=== PATIENT | female | born 1930 | race Hispanic/Latino ===

== ENCOUNTER 2017-11-27 22:36 | Inpatient (IN) | payer MEDICARE ==
[2017-11-27] MEDS ORDERED: Ondansetron HCl/PF 4 MG/2 ML Vial ONE (23:25)
--- NOTE | 2017-11-27 23:33 | CT ---
CT OF THE BRAIN WITHOUT CONTRAST 11/27/17 INDICATION: Fall hitting her face on a sink. Patient has had episodes of nausea and vomiting since being at home. COMPARISON: CTA of the head dated 02/19/12. FINDINGS: Stable postsurgical change of a right sided craniotomy. Vascular coils seen within the central aspect of the middle cranial fossa is similar. No acute infarct, hemorrhage or hydrocephalus is present. Th e skull is intact. The visualized paranasal sinuses appear clear. Mastoid air cells are clear. IMPRESSION: No acute intracranial abnormality. POS: THERESA
[2017-11-27 23:55] LABS: #Lymphocytes 1.6 thou/uL (1.20-3.40); #Monocytes 0.9 thou/uL (0.11-0.59); #Neutrophils 8.8 thou/uL (1.40-6.50); %Basophils 0.1 % (0.0-1.0); %Eosinophils 0.2 % (0.0-10.0); %Lymphocytes 13.7 % (21.0-51.0); Hemoglobin 16.9 g/dL (12.0-16.0); Mean Corpuscular HGB CONC 32.4 g/dL (32.0-36.0); Mean Corpuscular Hemoglobin 31.1 pg (27.0-31.0); Mean Corpuscular Volume 96.1 fl (81.0-99.0); Mean Platelet Volume 7.7 fL (7.4-10.4); Platelet Count 236 thou/uL (130-400); RBC Distribution Width 12.7 % (11.5-14.5); Red Blood Cell (RBC) Count 5.43 mill/uL (4.20-5.40); White Blood Cell (WBC) Count 11.3 thou/uL (4.8-10.8)
[2017-11-28 00:06] LABS: ALT (SGPT) 90 U/L (8-55); AST (SGOT) 236 U/L (5-34); Albumin 3.5 g/dL (3.4-4.8); Alkaline Phosphatase 127 U/L (40-150); Anion Gap 25 mmol/L (10-20); BUN (Urea Nitrogen) 50 mg/dL (9.8-20.1); Bilirubin, Total 0.5 mg/dL (0.2-1.2); Calc. Creatinine Clearance 0 mL/min (70-130); Calcium 8.7 mg/dL (7.8-10.44); Carbon Dioxide 15 mmol/L (23-31); Chloride 102 mmol/L (98-107); Estimated GFR-MDRD 14; Globulin 3.7 g/dL (2.4-3.5); Glucose 127 mg/dL (83-110); Potassium 4.3 mmol/L (3.5-5.1); Protein, Total 7.2 g/dL (6.0-8.3); Sodium 138 mmol/L (136-145)
[2017-11-28 00:10] LABS: Troponin I 0.218 ng/mL (< 0.028)
[2017-11-28 00:15] LABS: CKMB 48.8 ng/mL (0-6.6)
[2017-11-28] MEDS ORDERED: Oseltamivir 75 MG CAP PO SCH (00:30)
[2017-11-28 00:35] LABS: CK (CPK) 11017 U/L (29-168)
[2017-11-28 00:49] LABS: Bilirubin Moderate (Negative); Blood, Urine Large (Negative); Clarity TURBID (Clear); Glucose, Urine (Dipstick) 100 mg/dL (Negative); Leukocyte Small (Negative); Nitrite Negative (Negative); Protein, Urine (Dipstick) 100 mg/dL (Neg-Trace); Specific Gravity, Urine 1.026 (1.002-1.036); Urobilinogen 0.2 mg/dL (0.2-1.0)
[2017-11-28 00:51] LABS: Bacteria/HPF None Seen HPF (None Seen); Pathc Cast-AUWi Flag 4.87 (0-2.49); Yeast-AUWi Flag 263.7 (0-25.0)
[2017-11-28 00:55] LABS: Crystals/HPF 2+ AMORPH URATES HPF (Negative); Renal Epithelial None Seen HPF (0-3); Transitional Epithelial NONE SEEN HPF (0-3); Trichomonas/HPF None Seen HPF (None Seen); Yeast-All Forms None Seen HPF (None Seen)
[2017-11-28] MEDS ORDERED: Sodium Bicarbonate 150 MEQ in Sterile Water Injection 1,000 ML IV SCH (01:30)
[2017-11-28 06:11] LABS: Troponin I 0.129 ng/mL (< 0.028)
[2017-11-28 06:13] LABS: #Lymphocytes 2.3 thou/uL (1.20-3.40); #Monocytes 0.9 thou/uL (0.11-0.59); #Neutrophils 9.1 thou/uL (1.40-6.50); %Basophils 0.1 % (0.0-1.0); %Eosinophils 0.2 % (0.0-10.0); %Lymphocytes 18.6 % (21.0-51.0); %Monocytes 7.5 % (0.0-10.0); %Neutrophils 73.6 % (42.0-75.0); Hemoglobin 14.5 g/dL (12.0-16.0); Mean Corpuscular HGB CONC 33.4 g/dL (32.0-36.0); Mean Corpuscular Hemoglobin 32.1 pg (27.0-31.0); Mean Platelet Volume 7.4 fL (7.4-10.4); Platelet Count 224 thou/uL (130-400); RBC Distribution Width 12.4 % (11.5-14.5); Red Blood Cell (RBC) Count 4.51 mill/uL (4.20-5.40); White Blood Cell (WBC) Count 12.4 thou/uL (4.8-10.8)
[2017-11-28 06:28] LABS: ALT (SGPT) 85 U/L (8-55); AST (SGOT) 209 U/L (5-34); Albumin 3.1 g/dL (3.4-4.8); Alkaline Phosphatase 100 U/L (40-150); Anion Gap 20 mmol/L (10-20); BUN (Urea Nitrogen) 56 mg/dL (9.8-20.1); Bilirubin, Total 0.4 mg/dL (0.2-1.2); Calc. Creatinine Clearance 0 mL/min (70-130); Calcium 7.9 mg/dL (7.8-10.44); Carbon Dioxide 20 mmol/L (23-31); Chloride 104 mmol/L (98-107); Estimated GFR-MDRD 14; Glucose 98 mg/dL (83-110); Potassium 4.1 mmol/L (3.5-5.1); Protein, Total 6.1 g/dL (6.0-8.3); Sodium 140 mmol/L (136-145)
[2017-11-28 06:31] LABS: Troponin I 0.135 ng/mL (< 0.028)
[2017-11-28 06:35] LABS: Critical Call CKMBM RESULT DECREASING
[2017-11-28 06:40] LABS: CK (CPK) 7824 U/L (29-168)
[2017-11-28] MEDS ORDERED: traMADol HCl 50 MG TAB ONE (09:04)
[2017-11-28] MEDS ORDERED: Pepto Bismol Chew TAB PO PRN (12:34)
[2017-11-28] MEDS ORDERED: Ondansetron ODT 4 MG TAB PO PRN (12:34)
[2017-11-28] MEDS ORDERED: ALPRAZolam 0.25 MG TAB PO PRN (13:55)
--- NOTE | 2017-11-28 14:32 | HP ---
DATE OF SERVICE: 11/28/2017 CHIEF COMPLAINT: Weakness. HISTORY OF PRESENT ILLNESS: This is an 87-year-old elderly white female living with her with no known past medical history except for high blood pressures. Today, the patient was noted to have worsening weakness and cough associated with severe headache. The patient also had a syncopal episo de early this morning and her has advised the patient to go to the ER. The patient called EM S and the patient was brought to the ER and she is noted to have markedly elevated CPK levels. Initi ally it was suggested the patient could have had rhabdomyolysis. The patient had thorough evaluation and had enzymes were checked which was positive. The patient was seen in the ER, she was complainin g of severe diarrhea for the past 2-3 days, associated with nausea and vomiting and body aches. She does mention that she was exposed to her , who was also sick for the past few days and assumin g that he also had influenza. The patient had a recent hospitalization for gallbladder removal was i a different hospital and was started on oral antibiotics at that time. She denies having any chest pain at this time. She denies having any abdominal pain. Denies having any blood in the stool. No black stool. PAST MEDICAL HISTORY: Hypertension. PAST SURGICAL HISTORY: Gallbladder removal. SOCIAL HISTORY: The patient is not known smoker. No history of alcohol. No history of illicit drug use. The patient lives with her . FAMILY HISTORY: No significant family history of coronary artery disease. REVIEW OF SYSTEMS: All 12 systems are reviewed with the patient thoroughly. The following complete review of systems was negative, unless otherwise mentioned in the HPI or below: CONSTITUTIONAL: Weight loss or gain, sense of well-being, ability to conduct usual activities, exerc ise tolerance. SKIN/BREAST: Rash, itching, changes in hair growth or loss, nail changes, breast lumps, tenderness, swelling, nipple discharge. EYES: Vision, double vision, tearing, blind spots, pain. ENT/MOUTH: Headaches (location, time of onset, duration, precipitating factors), vertigo, lightheadedness, injury. Vision, double vision, tearing, blind spots, pain, nose b leeding, colds, obstruction, discharge, dental difficulties, gingival bleeding, dentures, neck stiffn ess, pain, tenderness, masses in thyroid or other areas CARDIOVASCULAR: Precordial pain, substernal distress, palpitations, syncope, dyspnea on exertion, or thopnea, nocturnal paroxysmal dyspnea, edema, cyanosis, hypertension, heart murmurs, varicosities, ph lebitis, claudication. RESPIRATORY: Pain, shortness of breath, wheezing, stridor, cough, hemoptysis, fever or night sweats GASTROINTESTINAL: Poor appetite, dysphagia, indigestion, abdominal pain, heartburn, eructation, naus ea, vomiting, hematemesis, jaundice, constipation, or diarrhea, abnormal stools (tomi-colored, tarry, bloody, greasy, foul smelling), flatulence, hemorrhoids, recent changes in bowel habits. GENITOURINARY: Urgency, frequency, dysuria, nocturia, hematuria, polyuria, oliguria, unusual (or teresa nge in) color of urine, stones, hesitancy, change in size of stream, dribbling, acute retention or in continence, libido, potency. MUSCULOSKELETAL: Pain, swelling, redness or heat of muscles or joints, limitation, of motion, muscular weakness, atrophy, cramps. NEUROLOGIC/PSYCHIATRIC: Convulsions, paralyses, tremor, incoordination, parasthesias, difficulties w ith memory of speech, sensory or motor disturbances, or muscular coordination (ataxia, tremor), emoti onal problems, anxiety, depression, previous psychiatric care, unusual perceptions, hallucinations. ALLERGY/IMMUNOLOGIC: Skin rash, anemia, bleeding tendency, polydipsia, polyuria, intolerance to heat or cold. HOME MEDICATIONS: 1. Lisinopril 20 mg p.o. daily. 2. Nebivolol 10 mg p.o. daily. 3. Pantoprazole 40 mg p.o. daily. 4. Tramadol 50 mg daily. 5. Levofloxacin 500 mg daily. 6. Clonidine 0.5 mg p.o. q.4 hours. 7. Citalopram 20 mg p.o. daily. 8. Azithromycin 500 mg p.o. daily. 9. Aspirin 325 mg p.o. daily. 10. Amlodipine 5 mg p.o. b.i.d. 11. Alprazolam 0.25 mg q.4 hours. ALLERGIES: No known drug allergies. PHYSICAL EXAMINATION: VITAL SIGNS: Blood pressures are 110/80, respiratory rate is 18, saturation is 98% on 3 liters. HEENT: Atraumatic, normocephalic, PERRLA. Extraocular movements are intact. Oral mucosa is pink an d moist. CARDIOVASCULAR: S1, S2 normal. No murmurs, no rubs, no gallops. LUNGS: Bilateral air entry was equal. No wheezing, no crackles. ABDOMEN: Soft and nontender. No guarding. No rebound tenderness. Bowel sounds normal. MUSCULOSKELETAL: The patient has severe tenderness at the upper and lower extremities, but no calf t enderness. No joint tenderness. No joint swelling. SKIN: No cyanosis, no erythema, no rash, no pallor. NEUROLOGIC: Cranial nerve examination II-XII intact. No focal deficits were noted. LYMPH: Lymphadenopathy, no signs of any axillary or inguinal lymph nodes were noted. PSYCHIATRIC: No signs of suicidal ideation. No signs of tre. No signs of agitation. LABORATORY DATA: WBC is 12.4, hemoglobin is 14.5, hematocrit is 43.2, and platelets are 224. Sodium 140, potassium 4.1, chloride 104, bicarbonate is 20, BUN 56, creatinine 3.19. CK is 7824. Troponin 0.135. ASSESSMENT AND PLAN: 1. Acute rhabdomyolysis. 2. Acute influenza A infection. 3. Intractable nausea and vomiting. 4. Intractable diarrhea. 5. Non-ST elevation myocardial infarction. 6. Acute kidney injury on chronic kidney disease, stage 4. PLAN: 1. The plan is to start the patient on IV fluids at this time 100 mL an hour. The patient has stage 4 renal disease, but this is based on estimated GFR. No evidence of previous history of worsening r enal failure. The patient has a good urine output according to her, so we will continue with aggress james IV hydration because of the severe rhabdomyolysis. 2. The patient has severe diarrhea and she is on oral antibiotics from her recent surgery, so at thi s time we will check for C. diff infection. Accordingly, I will start the patient on antibiotics bas ed on assay results. 3. The patient has worsening renal functions with a creatinine of 3.19. We will avoid any nephrotox ic medications. We will consult Nephrology moving forward if the renal functions do not improve with IV fluids. 4. The patient has elevated troponin levels, most likely this could be from demand ischemia and ishan re dehydration. She denies having any chest pain. We will continue the patient on aspirin and she i s also on statin. We will closely monitor. We will get a 2D echo to look for any evidence of wall m otion abnormality. We will consult Cardiology if needed if the troponin continues to trend. 5. History of hypertension, well controlled. We will hold off on the blood pressure medications. T he patient is on lisinopril. I spent 70 minutes with this patient.
[2017-11-28 15:28] VITALS: BMI 32.1
[2017-11-28] MEDS ORDERED: FLU VACC TS2017-18 (>65YR) 0.5 ML SYRINGE IM ONE (17:00)
[2017-11-28] MEDS: Sodium Chloride 0.9% 1,000 ML IV SCH (18:10)
[2017-11-28] MEDS: Carvedilol 3.125 MG TAB PO SCH (18:11)
--- NOTE | 2017-11-28 18:20 | CON ---
DATE OF CONSULTATION: 11/28/2017 CONSULTING PHYSICIAN: Jayesh Queen MD REASON FOR CONSULTATION: Acute kidney injury, rhabdomyolysis. REASON FOR ADMISSION: Weakness. HISTORY OF PRESENT ILLNESS: An 87-year-old female with history of hypertension who came to the hospital with weakness and was found to have acute kidney injury. The patient was very weak and was having cough and headache with syncopal episode and was brought to the hospital. On arrival, she was found to have a creatinine of 3.1 from her baseline of 0.7 with a CK level of 11,000 and Nephrol ogfrancis is consulted for further evaluation. The patient is feeling slightly better. She was also havin g nausea, vomiting, and body aches. No diarrhea reported. No skin rashes. No sick contacts at home . PAST MEDICAL HISTORY: Possible hypertension. PAST SURGICAL HISTORY: Cholecystectomy. HOME MEDICATIONS: Include Tramadol and lisinopril. ALLERGIES: To GOAT CHEESE. SOCIAL HISTORY: She is not a smoker. No alcohol or illicit drug abuse. FAMILY HISTORY: No history of any kidney disease. REVIEW OF SYSTEMS: The following complete review of systems was negative, unless otherwise mentioned in the HPI or below: Constitutional: Weight loss or gain, ability to conduct usual activities. Skin: Rash, itching. Ey es: Double vision, pain. ENT/Mouth: Nose bleeding, neck stiffness, pain, tenderness. Cardiovascul ar: Palpitations, dyspnea on exertion, orthopnea. Respiratory: Shortness of breath, wheezing, coug h, hemoptysis, fever or night sweats. Gastrointestinal: Poor appetite, abdominal pain, heartburn, n ausea, vomiting, constipation, or diarrhea. Genitourinary: Urgency, frequency, dysuria, nocturia. Musculoskeletal: Pain, swelling. Neurologic/Psychiatric: Anxiety, depression. Allergy/Immunologic : Skin rash, bleeding tendency. PHYSICAL EXAMINATION: GENERAL: This is an obese female in no apparent distress. VITAL SIGNS: Temperature 98.3, pulse 81, respiratory 16, blood pressure 125/76. HEENT: Atraumatic, normocephalic. Oral mucosa is moist. NECK: Supple, no masses. HEART: S1, S2 heard. Rate and rhythm regular. RESPIRATORY: Clear. GASTROINTESTINAL: Abdomen is soft. MUSCULOSKELETAL: No tenderness, no edema. DERMATOLOGIC: No skin rash. NEUROLOGIC: Alert, awake. PSYCHIATRIC: Normal. LABORATORY: Potassium is 4.1, BUN is 56, creatinine is 3.1. CK level was 11,017. ASSESSMENT AND PLAN: 1. Acute kidney injury most likely from rhabdomyolysis and volume depletion. Agree with hydration a nd check renal ultrasound. 2. Rhabdomyolysis. Continue on intravenous fluids and monitor. CK level is already better with hyd ration. 3. Elevated liver enzymes, most likely from volume depletion. 4. Hemoconcentration seems to be better with repeat labs. 5. Hypoalbuminemia. 6. Obesity. 7. Hypertension, stable. Most likely acute kidney injury from volume depletion and medications. Agree with holding lisinopril and hydration, monitor CK level and monitor urine output. We will follow. Thank you for the consultation. Avoid nephrotoxins.
[2017-11-28] MEDS: Famotidine/PF 20 mg/2ml Vial SLOW IVP SCH (20:54)
[2017-11-28] MEDS: Atorvastatin Calcium 10 MG TAB PO SCH (20:54)
[2017-11-28] MEDS: Amlodipine 5 MG TAB PO SCH (20:54)
[2017-11-28] MEDS: Oseltamivir 75 MG CAP PO SCH (20:54)
[2017-11-28] MEDS: HYDROcodone/Acetaminophen 5/325 mg Tablet PO PRN (20:55)
[2017-11-28] MEDS: Ondansetron HCl/PF 4 MG/2 ML Vial IVP PRN (23:31)
[2017-11-28 23:35] LABS: Bilirubin Negative (Negative); Blood, Urine Large (Negative); Clarity CLOUDY (Clear); Glucose, Urine (Dipstick) Negative (Negative); Leukocyte Negative (Negative); Nitrite Negative (Negative); Protein, Urine (Dipstick) 30 mg/dL (Neg-Trace); Specific Gravity, Urine 1.015 (1.002-1.036); Urobilinogen 0.2 mg/dL (0.2-1.0); pH, Urine 5.5 (5.0-9.0)
[2017-11-28 23:38] LABS: Bacteria/HPF None Seen HPF (None Seen); Yeast-AUWi Flag 179.1 (0-25.0)
[2017-11-28 23:39] LABS: Pathc Cast-AUWi Flag 7.18 (0-2.49)
[2017-11-28 23:53] LABS: Hyaline Casts/LPF 0-3 HYALINE CAST LPF (0-3 Hyaline); Other Casts/LPF None Seen LPF (0-3 Hyaline); RBC/HPF 0-3 HPF (0-3); Yeast-All Forms None Seen HPF (None Seen)
[2017-11-29] MEDS: Sodium Chloride 0.9% 1,000 ML IV SCH ×3 (00:31→15:56)
[2017-11-29 05:16] LABS: #Lymphocytes 1.9 thou/uL (1.20-3.40); #Monocytes 0.8 thou/uL (0.11-0.59); #Neutrophils 6.9 thou/uL (1.40-6.50); %Basophils 0.1 % (0.0-1.0); %Eosinophils 0.3 % (0.0-10.0); %Lymphocytes 19.6 % (21.0-51.0); %Monocytes 7.9 % (0.0-10.0); %Neutrophils 72.1 % (42.0-75.0); Hemoglobin 12.7 g/dL (12.0-16.0); Mean Corpuscular HGB CONC 33.2 g/dL (32.0-36.0); Mean Corpuscular Hemoglobin 31.9 pg (27.0-31.0); Mean Platelet Volume 7.8 fL (7.4-10.4); Platelet Count 212 thou/uL (130-400); RBC Distribution Width 12.4 % (11.5-14.5); White Blood Cell (WBC) Count 9.6 thou/uL (4.8-10.8)
[2017-11-29 05:51] LABS: Anion Gap 15 mmol/L (10-20); BUN (Urea Nitrogen) 60 mg/dL (9.8-20.1); Calc. Creatinine Clearance 25 mL/min (70-130); Calcium 7.5 mg/dL (7.8-10.44); Carbon Dioxide 22 mmol/L (23-31); Chloride 105 mmol/L (98-107); Estimated GFR-MDRD 19; Glucose 96 mg/dL (83-110); Potassium 4.3 mmol/L (3.5-5.1); Sodium 138 mmol/L (136-145)
--- NOTE | 2017-11-29 08:05 | PDOC.PN ---
- Subjective Encounter Start Date: 11/29/17 Encounter Start Time: 11:20 Patient is seen today, she is c/o worsening weakness and Constippation. persistant nausea. - Objective Resuscitation Status: Resuscitation Status FULL:Full Resuscitation MAR Reviewed: Yes Vital Signs & Weight: Vital Signs (12 hours) Temp Pulse Resp BP BP Pulse Ox 11/29/17 03:45 97.3 F L 68 20 114/67 94 L 11/28/17 23:33 98.0 F 83 20 97/61 92 L 11/28/17 20:54 68 132/71 I&O: 11/28/17 11/29/17 11/30/17 06:59 06:59 06:59 Intake Total 1899 Output Total 1 Balance 1898 Result Diagrams: 11/29/17 03:27 11/29/17 03:27 Radiology Reviewed by me: Yes Phys Exam - Physical Examination HEENT: PERRLA, moist MMs Neck: no nodes, no JVD Respiratory: no wheezing, no rales, no rhonchi Cardiovascular: RRR, no significant murmur, no rub Gastrointestinal: soft, non-tender, no distention Musculoskeletal: no edema, pulses present Neurological: non-focal, normal sensation Psychiatric: normal affect, A&O x 3 Skin: no rash, normal turgor Dx/Plan (1) Acute renal failure due to rhabdomyolysis Code(s): N17.9 - ACUTE KIDNEY FAILURE, UNSPECIFIED; D21.9 - BENIGN NEOPLASM OF CONNECTIVE AND OTHER SOFT TISSUE, UNSP Status: Acute (2) Influenza A Code(s): J10.1 - FLU DUE TO OTH IDENT INFLUENZA VIRUS W OTH RESP MANIFEST Status: Acute (3) Intractable nausea and vomiting Code(s): R11.2 - NAUSEA WITH VOMITING, UNSPECIFIED Status: Acute (4) NSTEMI (non-ST elevated myocardial infarction) Code(s): I21.4 - NON-ST ELEVATION (NSTEMI) MYOCARDIAL INFARCTION Status: Acute - Plan cont current plan of care, continue antibiotics, PT/OT, respiratory therapy, incentive spirometry, DVT proph w/lovenox * . Acute Influenza A Acute Rhabdomyolysis with Renal Failure NSTEMI Intractable nausea Generalized Weakness Plan: Discuased with nephrology, Advised pt for inpatient Rehab, pt is very weak and her Hydration is improving with IV fluids, Will repeat CPK and Troponin levels. Will continue to Avoid Nephrotoxic meds. Cotninue on Tamiflu for 5 days Continue on Prophylaxis IV antibiotics Renally dosed. Pt has Echo pending, Troponins trending down, No chest pain. pt is on Coreg, Statin, Aspirin. Pt would benefit from Rehab, she is very weak. DVT prophylaxis Lovenox 40mg Sc daily. - Discharge Day Encounter end time: 12:15 Review of Systems - Review of Systems Constitutional: weakness Eyes: negative: Pain, Vision Change, Conjunctivae Inflammation, Eyelid Inflammation, Redness, Other ENT: negative: Ear Pain, Ear Discharge, Nose Pain, Nose Discharge, Nose Congestion, Mouth Pain, Mouth Swelling, Throat Pain, Throat Swelling, Other Respiratory: negative: Cough, Dry, Shortness of Breath, Hemoptysis, SOB with Excertion, Pleuritic Pain, Sputum, Wheezing Cardiovascular: negative: chest pain, palpitations, orthopnea, paroxysmal nocturnal dyspnea, edema, light headedness, other Gastrointestinal: Nausea - Medications/Allergies Allergies/Adverse Reactions: Allergies Allergy/AdvReac Type Severity Reaction Status Date / Time Goat Cheese Allergy Intermediate Fever, rash Uncoded 11/28/17 15:28 Medications: Current Medications Hydrocodone Bitart/Acetaminophen ([place] 5/325) 1 tab PO Q4H PRN PRN Reason: Moderate Pain (4-6) Last Admin: 11/28/17 20:55 Dose: 1 tab Alprazolam (Xanax) 0.25 mg PO Q4H PRN PRN Reason: Anxiety Amlodipine Besylate (Norvasc) 5 mg PO BID [facility] Last Admin: 11/28/17 20:54 Dose: 5 mg Aspirin (Ecotrin) 325 mg PO DAILY [facility] Atorvastatin Calcium (Lipitor) 10 mg PO HS [facility] Last Admin: 11/28/17 20:54 Dose: 10 mg Bismuth Subsalicylate (Pepto Bismol) 2 tab PO Q1H PRN PRN Reason: Diarrhea/Loose Stools Carvedilol (Coreg) 3.125 mg PO BID[facility] Last Admin: 11/28/17 18:11 Dose: 3.125 mg Citalopram Hydrobromide (Celexa) 20 mg PO DAILY [facility] Enoxaparin Sodium (Lovenox) 40 mg SC 0900 [facility] Famotidine (Pepcid) 20 mg SLOW IVP Q12HR [facility] Last Admin: 11/28/17 20:54 Dose: 20 mg Sodium Chloride (Normal Saline 0.9%) 1,000 mls @ 100 mls/hr IV .Q10H [facility] Last Admin: 11/29/17 05:21 Dose: 1,000 mls Levofloxacin 500 mg/ Device 100 mls @ 100 mls/hr IVPB Q2D@1800 [facility] Last Admin: 11/28/17 18:09 Dose: 100 mls Ondansetron HCl (Zofran Odt) 4 mg PO Q6H PRN PRN Reason: Nausea/Vomiting Ondansetron HCl (Zofran) 4 mg IVP Q6H PRN PRN Reason: Nausea/Vomiting Last Admin: 11/28/17 23:31 Dose: 4 mg Oseltamivir Phosphate (Tamiflu) 75 mg PO BID [facility] Stop: 12/03/17 09:01 Last Admin: 11/28/17 20:54 Dose: 75 mg
[2017-11-29] MEDS: Enoxaparin Sodium 40 MG/0.4 ML SYRINGE SC SCH (08:41)
[2017-11-29] MEDS: Aspirin 325 mg Enteric Coated Tablet PO SCH (08:42)
[2017-11-29] MEDS: Carvedilol 3.125 MG TAB PO SCH ×2 (08:42→17:14)
[2017-11-29] MEDS: Citalopram 20 MG TAB PO SCH (08:42)
[2017-11-29] MEDS: Amlodipine 5 MG TAB PO SCH ×2 (08:42→20:42)
[2017-11-29] MEDS: Famotidine/PF 20 mg/2ml Vial SLOW IVP SCH ×2 (08:42→20:43)
[2017-11-29 08:51] LABS: Troponin I 0.045 ng/mL (< 0.028)
[2017-11-29] MEDS: Oseltamivir 75 MG CAP PO SCH ×2 (09:22→20:43)
[2017-11-29] MEDS: Ondansetron HCl/PF 4 MG/2 ML Vial IVP PRN (12:28)
--- NOTE | 2017-11-29 17:09 | PRG ---
DATE OF SERVICE: 11/29/2017 SUBJECTIVE: Patient was seen and examined at bedside and overnight events noted. Patient denies any shortness of breath or chest pain or palpitation. No history of nausea or vomiting or diarrhea or f ever or chills or cramps. OBJECTIVE: GENERAL: This is an obese female in no apparent distress. VITAL SIGNS: Temperature 97.9, pulse 70, respiratory rate 20, blood pressure 148/76. HEENT: Atraumatic, normocephalic. Oral mucosa is moist. NECK: Supple. CARDIOVASCULAR: S1, S2 heard. Rate and rhythm regular. RESPIRATORY: Clear to auscultation. GASTROINTESTINAL: Abdomen is soft. MUSCULOSKELETAL: No tenderness, no edema. DERMATOLOGIC: No skin rash. NEUROLOGIC: Alert and awake and oriented x3. No focal neurologic deficits. Moving all the extremit ies. PSYCHIATRIC: Mood and affect normal. LABORATORY DATA: Potassium is 4.3, BUN is 60 and creatinine is 2.4. ASSESSMENT AND PLAN: 1. Acute kidney injury on chronic kidney disease. Renal function is getting better. 2. Rhabdomyolysis. Continue IV fluids. 3. Elevated liver enzymes. 4. Hemoconcentration. 5. Hypoalbuminemia. 6. Obesity. 7. Hypertension. Continue hydration. Renal function is stable.
--- NOTE | 2017-11-29 20:15 | CON ---
DATE OF CONSULTATION: 11/29/2017 INDICATION FOR CONSULTATION: This is an 87-year-old female with abnormal cardiac enzymes. HISTORY OF PRESENT ILLNESS: This is a very unfortunate 87-year-old female who has had a recent episo de of what appears to be influenza with a recent cough and headaches. She also developed nausea, vom iting, and diarrhea. She has not been able to eat for the last several days. She had either a synco pe or near syncopal episode. She denies actual syncope and said that she actually fell over due to f atigue and weakness, but otherwise, has had no previous cardiac history that we are aware of. When s he presented to the hospital, she had significant elevations of the cardiac enzymes as well as a CK. The CK is out of proportion actually to what would be expected with myocardial infarction and most l ikely, this indicates rhabdomyolysis most likely some history of fever as well as nausea, vomiting, a nd diarrhea. Her CK has decreased to 11,000, down to 4367. Her cardiac enzymes actually are still i ndeterminate and this would most likely indicate no significant myocardial infarction. MB was 45, bu t given the severe elevation of CK, this is most likely just due to the abnormality associated with t he CK that is extremely elevated and does not indicate myocardial infarction. She denied any chest p ain and there is no indication on the EKG that she has had any myocardial infarction. At this time, she remains stable, but she still continues to have some nausea. She has had no vomiting today and s he also continues to have diarrhea. PAST MEDICAL HISTORY: Significant for hypertension, cholecystectomy, left femur fracture with repair in 2012, rheumatoid arthritis, anxiety. 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 She h as a history of diverticulitis. She has had colon cancer with a partial colectomy. She has had an a ppendectomy, total abdominal hysterectomy and bilateral salpingo-oophorectomy. SOCIAL HISTORY: She is . She has no alcohol or tobacco abuse. FAMILY HISTORY: Father had coronary artery disease and myocardial infarction in his 70s. ALLERGIES: She is allergic to GOAT CHEESE. REVIEW OF SYSTEMS: Unremarkable 12-point review of systems except that was noted in the history of p resent illness. HOME MEDICATIONS: Included lisinopril and tramadol. In the hospital, she has been on Norvasc, aspir in, Coreg, and Lovenox. PHYSICAL EXAMINATION: VITAL SIGNS: Reveals blood pressure of 140/76, heart rate 72 and regular, she is afebrile, respirato ry rate is 20. HEENT: Shows the head to be normocephalic and atraumatic. Carotid pulses are present. There are no bruits. CHEST: Clear. No rales, rhonchi, or wheezing. CARDIOVASCULAR: Reveals a regular rate and rhythm, normal S1, S2. There is no S3 or S4. There were no significant murmurs, heaves, thrills, bruits, or rubs. ABDOMEN: Soft and nontender. Positive bowel sounds are present. EXTREMITIES: Showed no clubbing, cyanosis, edema. Pedal pulses are present. NEUROLOGIC: The patient appears to be relatively intact. She is too weak to get out of the bed for further evaluation. SKIN: Warm and dry. EKG shows a normal sinus rhythm. IMPRESSION: 1. Elevated cardiac enzymes due to rhabdomyolysis. This does not indicate myocardial infarction. I n the future, she may need to undergo stress testing or echo and we will check her echocardiogram whi ch has already been ordered. We will continue to monitor the enzymes, but this appears to be already trending downwards and does not indicate myocardial infarction. 2. History of most likely influenza. 3. Rhabdomyolysis which is the cause of her acute renal insufficiency and also most likely indicate some degree of dehydration associated with the rhabdomyolysis. 4. Acute renal insufficiency associated most likely to be rhabdomyolysis and dehydration. 5. Possible syncope. The patient denies this but maybe possibly that she did have a syncopal episod e at home that was most likely associated with hypotension and dehydration. At this time, we would j ust continue to monitor the patient. I have reviewed her medication, I would agree with her present medications. At this time, there is no indication. We need to proceed with any acute cardiac evalua tion.
[2017-11-29] MEDS: Atorvastatin Calcium 10 MG TAB PO SCH (20:43)
[2017-11-30] MEDS: Sodium Chloride 0.9% 1,000 ML IV SCH ×2 (01:57→12:00)
[2017-11-30 05:01] LABS: #Lymphocytes 2.2 thou/uL (1.20-3.40); #Monocytes 0.6 thou/uL (0.11-0.59); #Neutrophils 3.9 thou/uL (1.40-6.50); %Eosinophils 0.3 % (0.0-10.0); %Lymphocytes 32.8 % (21.0-51.0); %Monocytes 8.7 % (0.0-10.0); %Neutrophils 58.1 % (42.0-75.0); Hemoglobin 12.6 g/dL (12.0-16.0); Mean Corpuscular HGB CONC 32.9 g/dL (32.0-36.0); Mean Corpuscular Hemoglobin 31.8 pg (27.0-31.0); Mean Corpuscular Volume 96.5 fl (81.0-99.0); Mean Platelet Volume 7.6 fL (7.4-10.4); Platelet Count 204 thou/uL (130-400); RBC Distribution Width 12.2 % (11.5-14.5); Red Blood Cell (RBC) Count 3.97 mill/uL (4.20-5.40); White Blood Cell (WBC) Count 6.8 thou/uL (4.8-10.8)
[2017-11-30 05:16] LABS: Anion Gap 11 mmol/L (10-20); BUN (Urea Nitrogen) 41 mg/dL (9.8-20.1); Calc. Creatinine Clearance 50 mL/min (70-130); Calcium 7.7 mg/dL (7.8-10.44); Carbon Dioxide 23 mmol/L (23-31); Chloride 112 mmol/L (98-107); Estimated GFR-MDRD 43; Glucose 89 mg/dL (83-110); Potassium 3.7 mmol/L (3.5-5.1); Sodium 142 mmol/L (136-145)
[2017-11-30] MEDS: Amlodipine 5 MG TAB PO SCH ×2 (08:22→20:24)
[2017-11-30] MEDS: Enoxaparin Sodium 40 MG/0.4 ML SYRINGE SC SCH (08:23)
[2017-11-30] MEDS: Aspirin 325 mg Enteric Coated Tablet PO SCH (08:23)
[2017-11-30] MEDS: Carvedilol 3.125 MG TAB PO SCH ×2 (08:23→18:11)
[2017-11-30] MEDS: Citalopram 20 MG TAB PO SCH (08:23)
[2017-11-30] MEDS: Oseltamivir 75 MG CAP PO SCH ×2 (08:23→20:25)
[2017-11-30] MEDS: Famotidine/PF 20 mg/2ml Vial SLOW IVP SCH ×2 (08:23→20:26)
[2017-11-30] MEDS: Ondansetron HCl/PF 4 MG/2 ML Vial IVP PRN (12:00)
--- NOTE | 2017-11-30 14:30 | PDOC.PN ---
- Subjective Encounter Start Date: 11/30/17 Encounter Start Time: 11:15 Milton is seen today, alert and oriented, She remains very nauseaos and vomiting. No abdominal pain, had good BM. No body pains today. - Objective Resuscitation Status: Resuscitation Status FULL:Full Resuscitation MAR Reviewed: Yes Vital Signs & Weight: Vital Signs (12 hours) Temp Pulse Resp BP BP BP Pulse Ox 11/30/17 13:00 98.2 F 73 18 165/73 H 94 L 11/30/17 08:22 63 172/67 H 11/30/17 08:00 97.3 F L 63 20 170/67 H 99 11/30/17 04:00 98.2 F 63 20 156/65 H 93 L I&O: 11/29/17 11/30/17 12/01/17 06:59 06:59 06:59 Intake Total 1899 1446 Output Total 1 1 Balance 1898 1445 Result Diagrams: 11/30/17 03:51 11/30/17 03:51 Radiology Reviewed by me: Yes Phys Exam - Physical Examination HEENT: PERRLA, moist MMs Neck: no nodes, no JVD Respiratory: no wheezing, no rales Cardiovascular: RRR, no significant murmur Gastrointestinal: soft, non-tender Musculoskeletal: no edema, pulses present Neurological: non-focal, normal sensation Psychiatric: normal affect, A&O x 3 Skin: no rash, normal turgor Dx/Plan (1) Acute renal failure due to rhabdomyolysis Code(s): N17.9 - ACUTE KIDNEY FAILURE, UNSPECIFIED; D21.9 - BENIGN NEOPLASM OF CONNECTIVE AND OTHER SOFT TISSUE, UNSP Status: Acute (2) Influenza A Code(s): J10.1 - FLU DUE TO OTH IDENT INFLUENZA VIRUS W OTH RESP MANIFEST Status: Acute (3) Intractable nausea and vomiting Code(s): R11.2 - NAUSEA WITH VOMITING, UNSPECIFIED Status: Acute (4) NSTEMI (non-ST elevated myocardial infarction) Code(s): I21.4 - NON-ST ELEVATION (NSTEMI) MYOCARDIAL INFARCTION Status: Acute - Plan cont current plan of care, continue antibiotics, PT/OT, incentive spirometry, DVT proph w/lovenox * . Plan: pt is very weak and her Hydration is improving with IV fluids, will reduce fluids to 75ml/hr, repeat CPK is trending down and Troponin levels normal. Will continue to Avoid Nephrotoxic meds. Cotninue on Tamiflu for 5 days Continue on Prophylaxis IV antibiotics Renally dosed. Pt has Echo pending, Troponins trending down, No chest pain. pt is on Coreg , Statin, Aspirin. Cardiology Ok with plan. Pt would benefit from Rehab, she is very weak. DVT prophylaxis Lovenox 40mg Sc daily. - Discharge Day Encounter end time: 11:45 Review of Systems - Review of Systems Constitutional: weakness, malaise Eyes: negative: Pain, Vision Change, Conjunctivae Inflammation, Eyelid Inflammation, Redness, Other ENT: negative: Ear Pain, Ear Discharge, Nose Pain, Nose Discharge, Nose Congestion, Mouth Pain, Mouth Swelling, Throat Pain, Throat Swelling, Other Respiratory: negative: Cough, Dry, Shortness of Breath, Hemoptysis, SOB with Excertion, Pleuritic Pain, Sputum, Wheezing Cardiovascular: negative: chest pain, palpitations, orthopnea, paroxysmal nocturnal dyspnea, edema, light headedness, other Gastrointestinal: Nausea, Vomiting. negative: Abdominal Pain, Diarrhea, Constipation, Melena, Hematochezia, Other Genitourinary: negative: Dysuria, Frequency, Incontinence, Hematuria, Retention , Other Musculoskeletal: negative: Neck Pain, Shoulder Pain, Arm Pain, Back Pain, Hand Pain, Leg Pain, Foot Pain, Other Skin: negative: Rash, Lesions, Naveen, Bruising, Other Neurological: Weakness - Medications/Allergies Allergies/Adverse Reactions: Allergies Allergy/AdvReac Type Severity Reaction Status Date / Time Goat Cheese Allergy Intermediate Fever, rash Uncoded 11/28/17 15:28 Medications: Current Medications Hydrocodone Bitart/Acetaminophen ([place] 5/325) 1 tab PO Q4H PRN PRN Reason: Moderate Pain (4-6) Last Admin: 11/28/17 20:55 Dose: 1 tab Alprazolam (Xanax) 0.25 mg PO Q4H PRN PRN Reason: Anxiety Last Admin: 11/29/17 20:42 Dose: 0.25 mg Amlodipine Besylate (Norvasc) 5 mg PO BID [facility] Last Admin: 11/30/17 08:22 Dose: 5 mg Aspirin (Ecotrin) 325 mg PO DAILY [facility] Last Admin: 11/30/17 08:23 Dose: 325 mg Atorvastatin Calcium (Lipitor) 10 mg PO HS [facility] Last Admin: 11/29/17 20:43 Dose: 10 mg Bismuth Subsalicylate (Pepto Bismol) 2 tab PO Q1H PRN PRN Reason: Diarrhea/Loose Stools Carvedilol (Coreg) 3.125 mg PO BID-[facility] Last Admin: 11/30/17 08:23 Dose: 3.125 mg Citalopram Hydrobromide (Celexa) 20 mg PO DAILY [facility] Last Admin: 11/30/17 08:23 Dose: 20 mg Enoxaparin Sodium (Lovenox) 40 mg SC 0900 [facility] Last Admin: 11/30/17 08:23 Dose: 40 mg Famotidine (Pepcid) 20 mg SLOW IVP Q12HR [facility] Last Admin: 11/30/17 08:23 Dose: 20 mg Levofloxacin 500 mg/ Device 100 mls @ 100 mls/hr IVPB Q2D@1800 [facility] Last Admin: 11/28/17 18:09 Dose: 100 mls Sodium Chloride (Normal Saline 0.9%) 1,000 mls @ 75 mls/hr IV .[id number] [facility] Last Admin: 11/30/17 12:00 Dose: 1,000 mls Ondansetron HCl (Zofran Odt) 4 mg PO Q6H PRN PRN Reason: Nausea/Vomiting Ondansetron HCl (Zofran) 4 mg IVP Q6H PRN PRN Reason: Nausea/Vomiting Last Admin: 11/30/17 12:00 Dose: 4 mg Oseltamivir Phosphate (Tamiflu) 75 mg PO BID [facility] Stop: 12/03/17 09:01 Last Admin: 11/30/17 08:23 Dose: 75 mg
--- NOTE | 2017-11-30 16:48 | PRG ---
DATE OF SERVICE: 11/30/2017 SUBJECTIVE: Patient was seen and examined at bedside and overnight events noted. Patient denies any shortness of breath or chest pain or palpitation. No history of nausea or vomiting or diarrhea or f ever or chills or cramps. OBJECTIVE: GENERAL: This is an obese female in no apparent distress. VITAL SIGNS: Temperature 98.2, pulse 73, respiratory rate 18, blood pressure 165/73. HEENT: Atraumatic, normocephalic. Oral mucosa is moist. NECK: Supple. CARDIOVASCULAR: S1, S2 heard. Rate and rhythm regular. RESPIRATORY: Clear to auscultation. GASTROINTESTINAL: Abdomen is soft. MUSCULOSKELETAL: No tenderness. No edema. DERMATOLOGIC: No skin rash. NEUROLOGIC: Alert and awake and oriented x3. No focal neurologic deficits. Moving all the extremiti es. PSYCHIATRIC: Mood and affect normal. LABORATORY DATA: Potassium is 3.7, BUN 41, creatinine is 1.1. ASSESSMENT AND PLAN: 1. Acute kidney injury on chronic kidney disease. Renal function is much better. Continue IV fluid s. 2. Rhabdomyolysis, better. 3. Elevated liver enzymes with hemoconcentration. 4. Obesity. 5. Hypertension. 6. Renal function is better and we will follow.
[2017-11-30] MEDS: HYDROcodone/Acetaminophen 5/325 mg Tablet PO PRN (18:12)
--- NOTE | 2017-11-30 20:16 | PDOC.CTH ---
<Ramila Willoughby - Last Filed: 11/30/17 20:12> Cardiology Progress Note - Subjective The pt seen and examined. No overnight events. No cardiac complaints. She still complains of intermittent coughing due to influenza. - Objective Vital Signs Temp Pulse Resp BP BP Pulse Ox Pulse Ox 11/30/17 14:25 93 L 11/30/17 13:00 98.2 F 73 18 165/73 H 94 L 11/30/17 08:22 63 172/67 H Pulse Ox 11/30/17 14:25 94 L 11/30/17 13:00 11/30/17 08:22 Admit Weight 205 lb Weight 205 lb 4.8 oz 11/29/17 11/30/17 12/01/17 06:59 06:59 06:59 Intake Total 1899 1446 330 Output Total 1 1 4 Balance 1898 1445 326 - Physical Examination General/Neuro: alert & oriented x3 Neck: no JVD present Lungs: other: (coases) Heart: RRR Abdomen: soft Extremities: other: (No edemas) - Labs Result Diagrams: 11/30/17 03:51 11/30/17 03:51 Troponin/CKMB CK-MB (CK-2) 45.0 ng/mL (0-6.6) H* 11/28/17 05:59 Troponin I 0.045 ng/mL (< 0.028) H 11/29/17 03:27 - Assessment/Plan 1. Elevated CE deu to Rhabdomyolysis - CE is trending down 2. Acute renal failure due to rhabdomyolysis - managed by reeling machine setup operator 3. Influenza A - Tamiflu for 5 days; managed by PCP 4. Hyperlipidemia - On statin 5. Syncope - possible due to dehydration; stable at this moment; Echo result is pending at this time MAR reviewed Review of Systems - Review of Systems Constitutional: reports: no symptoms reported EENTM: reports: no symptoms reported Respiratory: reports: see HPI Cardiac (ROS): reports: no symptoms reported ABD/GI: reports: no symptoms reported : reports: no symptoms reported Musculoskeletal: reports: no symptoms reported Skin: reports: no symptoms reported <Ponce Bowling - Last Filed: 11/30/17 22:28> Cardiology Progress Note - Objective Vital Signs Temp Pulse Resp BP BP Pulse Ox Pulse Ox 11/30/17 20:24 73 11/30/17 20:00 98.2 F 58 L 16 146/76 H 93 L 11/30/17 14:25 93 L 11/30/17 13:00 98.2 F 73 18 165/73 H 94 L Pulse Ox 11/30/17 20:24 11/30/17 20:00 11/30/17 14:25 94 L 11/30/17 13:00 Admit Weight 205 lb Weight 205 lb 4.8 oz 11/29/17 11/30/17 12/01/17 06:59 06:59 06:59 Intake Total 1899 1446 330 Output Total 1 1 4 Balance 1898 1445 326 - Labs Result Diagrams: 11/30/17 03:51 11/30/17 03:51 Troponin/CKMB CK-MB (CK-2) 45.0 ng/mL (0-6.6) H* 11/28/17 05:59 Troponin I 0.045 ng/mL (< 0.028) H 11/29/17 03:27 - Assessment/Plan Pt. seen and eval. by me.I agree with the A/P by the TWISTER DOFFER.The echo indicates a normal EF.Mild MR,TR.
[2017-11-30] MEDS: Atorvastatin Calcium 10 MG TAB PO SCH (20:24)
[2017-12-01] MEDS: Sodium Chloride 0.9% 1,000 ML IV SCH ×2 (01:42→12:31)
[2017-12-01 05:15] LABS: #Lymphocytes 2.1 thou/uL (1.20-3.40); #Monocytes 0.7 thou/uL (0.11-0.59); #Neutrophils 3.9 thou/uL (1.40-6.50); %Basophils 0.3 % (0.0-1.0); %Eosinophils 0.4 % (0.0-10.0); %Lymphocytes 31.3 % (21.0-51.0); %Neutrophils 57.9 % (42.0-75.0); Hemoglobin 12.6 g/dL (12.0-16.0); Mean Corpuscular HGB CONC 33.8 g/dL (32.0-36.0); Mean Corpuscular Hemoglobin 32.7 pg (27.0-31.0); Mean Corpuscular Volume 96.6 fl (81.0-99.0); Platelet Count 219 thou/uL (130-400); RBC Distribution Width 12.1 % (11.5-14.5); Red Blood Cell (RBC) Count 3.87 mill/uL (4.20-5.40); White Blood Cell (WBC) Count 6.8 thou/uL (4.8-10.8)
[2017-12-01 05:20] LABS: Anion Gap 10 mmol/L (10-20); BUN (Urea Nitrogen) 23 mg/dL (9.8-20.1); Calc. Creatinine Clearance 77 mL/min (70-130); Calcium 7.7 mg/dL (7.8-10.44); Carbon Dioxide 23 mmol/L (23-31); Chloride 113 mmol/L (98-107); Estimated GFR-MDRD 71; Glucose 92 mg/dL (83-110); Sodium 142 mmol/L (136-145)
[2017-12-01] MEDS: HYDROcodone/Acetaminophen 5/325 mg Tablet PO PRN ×2 (05:46→17:51)
[2017-12-01] MEDS: Ondansetron HCl/PF 4 MG/2 ML Vial IVP PRN (05:46)
--- NOTE | 2017-12-01 09:17 | PDOC.CTH ---
<Ramila Willoughby - Last Filed: 12/01/17 09:17> Cardiology Progress Note - Subjective The pt seen and examined. No overnight events. No cardiac complaints. She reported she is still coughing; however, less frequent now. - Objective Vital Signs Temp Pulse Resp BP BP Pulse Ox 12/01/17 08:00 98.0 F 67 20 158/83 H 96 12/01/17 04:00 98.1 F 64 18 167/74 H 95 12/01/17 00:00 98.5 F 65 16 144/73 H 94 L Admit Weight 205 lb Weight 205 lb 4.8 oz 11/30/17 12/01/17 12/02/17 06:59 06:59 06:59 Intake Total 1446 1230 Output Total 1 4 Balance 1445 1226 - Physical Examination General/Neuro: alert & oriented x3 Neck: no JVD present Lungs: other: (diminished at bases) Heart: RRR Abdomen: soft Extremities: other: (No edema) - Labs Result Diagrams: 12/01/17 03:47 12/01/17 03:47 Troponin/CKMB CK-MB (CK-2) 45.0 ng/mL (0-6.6) H* 11/28/17 05:59 Troponin I 0.045 ng/mL (< 0.028) H 11/29/17 03:27 - Assessment/Plan 1. Elevated CE due to Rhabdomyolysis - CE is trending down 2. Acute renal failure due to rhabdomyolysis - Improved today; managed by special education para professional 3. Influenza A - Tamiflu for 5 days; managed by PCP 4. HTN - stable with current medication 5. Hyperlipidemia - On statin 6. Syncope - possible due to dehydration; stable at this moment;The Echo a normal EF, mild MR and TR. MAR reviewed Review of Systems - Review of Systems Constitutional: reports: no symptoms reported EENTM: reports: no symptoms reported Respiratory: reports: cough, shortness of breath (with cough) ABD/GI: reports: no symptoms reported : reports: no symptoms reported <Ponce Bowling - Last Filed: 12/01/17 16:26> Cardiology Progress Note - Objective Vital Signs Temp Pulse Resp BP Pulse Ox 12/01/17 12:34 98.0 F 70 18 148/68 H 94 L 01/02/18 09:37 67 12/01/17 08:00 98.0 F 67 20 158/83 H 96 Admit Weight 205 lb Weight 205 lb 4.8 oz 11/30/17 12/01/17 12/02/17 06:59 06:59 06:59 Intake Total 1446 1230 120 Output Total 1 4 Balance 1445 1226 120 - Labs Result Diagrams: 12/01/17 03:47 12/01/17 03:47 Troponin/CKMB CK-MB (CK-2) 45.0 ng/mL (0-6.6) H* 11/28/17 05:59 Troponin I 0.045 ng/mL (< 0.028) H 11/29/17 03:27 - Assessment/Plan Pt. seen and eval. by me.I agree with the A/P by the MANAGER [employer]. She c/o's of not feeling well and sore all over today.Cardiac status is stable. I will sigh off. She can follow up with me in the outpt. setting. The increased T.I. was likely due to the total elevation of the CK due to rhabdo.
[2017-12-01] MEDS: Enoxaparin Sodium 40 MG/0.4 ML SYRINGE SC SCH (09:36)
[2017-12-01] MEDS: Famotidine/PF 20 mg/2ml Vial SLOW IVP SCH ×2 (09:37→20:21)
[2017-12-01] MEDS: Oseltamivir 75 MG CAP PO SCH ×2 (09:37→20:21)
[2017-12-01] MEDS: Amlodipine 5 MG TAB PO SCH ×2 (09:37→20:21)
[2017-12-01] MEDS: Carvedilol 3.125 MG TAB PO SCH ×2 (09:37→18:02)
--- NOTE | 2017-12-01 12:34 | PQF ---
ELENA RODRIGUEZ CAPONE [id number] CLINICAL DOCUMENTATION IMPROVEMENT CLARIFICATION FORM: ICD-10 Updated PLEASE DO AN ADDENDUM TO THE PROGRESS NOTE WITH ANY DOCUMENTATION UPDATES OR ADDITIONS AND CARRY THROUGH TO DC SUMMARY. THANK YOU. DATE: 12-01-17 ATTN: DR. LIBORIO CURRIE Please exercise your independent, professional judgment in responding to the clarification form. Clinical indicators are provided on the bottom of this form for your review Please check appropriate box(s): Conflicting documentation was noted in the Medical Record, please clarify if patient is being treated/monitored for: [ x ] NSTEMI TYPE 2 (D/T DEMAND ISCHEMIA) [ ] DEMAND ISCHEMIA [ ] Other diagnosis [ ] Unable to determine For continuity of documentation, please document condition throughout progress notes and discharge summary. Thank You. CLINICAL INDICATORS - SIGNS / SYMPTOMS/ LABS LABS: TROPONIN I 11-27 @ 2341 0.218 11-28 @ 0233 0.160 11-28 @ 0536 0.129 11-28 @ 0559 0.135 11-29 @ 0327 0.045 H&P AND PN 11-29: NSTEMI - ELEVATED TROPONIN LEVELS, MOST LIKELY COULD BE FROM DEMAND ISCHEMIA AND SEVERE DEHYDRATION CARDIO CONSULT: ELEVATED CE D/T RHABDOMYOLYSIS - THIS DOES NOT INDICATED PR RISK FACTORS H&P: RHABDO ; DEHYDRATION ; EFRAÍN TREATMENT H&P: ASPIRIN; LIPITOR; IVF CARDIO CONSULT 11-29 ECHO: EF 55-60% THANK YOU, LINDA (This form is maintained as a part of the permanent medical record) 2014 [employer]. All Rights Reserved Linda Ramirez RN, BS [email or web address]am[facility]
--- NOTE | 2017-12-01 15:59 | PDOC.PN ---
- Subjective Encounter Start Date: 12/01/17 Encounter Start Time: 14:00 Patient is domo today, Alert and oriented. She is able to eat Some Today and keep it Down, She is very weak and high risk for falls. - Objective Resuscitation Status: Resuscitation Status FULL:Full Resuscitation MAR Reviewed: Yes Vital Signs & Weight: Vital Signs (12 hours) Temp Pulse Resp BP BP Pulse Ox 12/01/17 12:34 98.0 F 70 18 148/68 H 94 L 12/01/17 09:37 67 12/01/17 08:00 98.0 F 67 20 158/83 H 96 12/01/17 04:00 98.1 F 64 18 167/74 H 95 Weight Admit Weight 205 lb Weight 205 lb 4.8 oz I&O: 11/30/17 12/01/17 12/02/17 06:59 06:59 06:59 Intake Total 1446 1230 120 Output Total 1 4 Balance 1445 1226 120 Result Diagrams: 12/01/17 03:47 12/01/17 03:47 Radiology Reviewed by me: Yes Phys Exam - Physical Examination HEENT: PERRLA, moist MMs Neck: no nodes, no JVD Respiratory: no wheezing, no rales Cardiovascular: RRR, no significant murmur Gastrointestinal: soft, non-tender Musculoskeletal: no edema, pulses present Neurological: non-focal, normal sensation Lymphatic: no nodes Dx/Plan (1) Acute renal failure due to rhabdomyolysis Code(s): N17.9 - ACUTE KIDNEY FAILURE, UNSPECIFIED; D21.9 - BENIGN NEOPLASM OF CONNECTIVE AND OTHER SOFT TISSUE, UNSP Status: Resolved (2) Influenza A Code(s): J10.1 - FLU DUE TO OTH IDENT INFLUENZA VIRUS W OTH RESP MANIFEST Status: Acute (3) Intractable nausea and vomiting Code(s): R11.2 - NAUSEA WITH VOMITING, UNSPECIFIED Status: Acute (4) NSTEMI (non-ST elevated myocardial infarction) Code(s): I21.4 - NON-ST ELEVATION (NSTEMI) MYOCARDIAL INFARCTION Status: Acute - Plan cont current plan of care, PT/OT, incentive spirometry, out of bed/ambulate, DVT proph w/lovenox Plan: pt is very weak and her Hydration is improving with IV fluids, will reduce fluids to 75ml/hr, repeat CPK is trending down and Troponin levels normal. Renal functions back to Normal. Cotninue on Tamiflu for 5 days Continue on Prophylaxis IV antibiotics Renally dosed. Pt has Echo normal EF, Troponins trending down, No chest pain. pt is on Coreg, Statin, Aspirin. Cardiology Ok with plan. Pt would benefit from Rehab, she is very weak. DVT prophylaxis Lovenox 40mg Sc daily. * . - Discharge Day Encounter end time: 14:40 Review of Systems - Review of Systems Constitutional: negative: fever, chills, sweats, weakness, malaise, other Eyes: negative: Pain, Vision Change, Conjunctivae Inflammation, Eyelid Inflammation, Redness, Other ENT: negative: Ear Pain, Ear Discharge, Nose Pain, Nose Discharge, Nose Congestion, Mouth Pain, Mouth Swelling, Throat Pain, Throat Swelling, Other Respiratory: negative: Cough, Dry, Shortness of Breath, Hemoptysis, SOB with Excertion, Pleuritic Pain, Sputum, Wheezing Cardiovascular: negative: chest pain, palpitations, orthopnea, paroxysmal nocturnal dyspnea, edema, light headedness, other Gastrointestinal: Nausea, Vomiting Musculoskeletal: negative: Neck Pain, Shoulder Pain, Arm Pain, Back Pain, Hand Pain, Leg Pain, Foot Pain, Other Skin: negative: Rash, Lesions, Naveen, Bruising, Other Neurological: negative: Weakness, Numbness, Incoordination, Change in Speech, Confusion, Seizures, Other - Medications/Allergies Allergies/Adverse Reactions: Allergies Allergy/AdvReac Type Severity Reaction Status Date / Time Goat Cheese Allergy Intermediate Fever, rash Uncoded 11/28/17 15:28 Medications: Current Medications Hydrocodone Bitart/Acetaminophen ([place] 5/325) 1 tab PO Q4H PRN PRN Reason: Moderate Pain (4-6) Last Admin: 12/01/17 05:46 Dose: 1 tab Alprazolam (Xanax) 0.25 mg PO Q4H PRN PRN Reason: Anxiety Last Admin: 11/29/17 20:42 Dose: 0.25 mg Amlodipine Besylate (Norvasc) 5 mg PO BID [facility] Last Admin: 12/01/17 09:37 Dose: 5 mg Aspirin (Ecotrin) 325 mg PO DAILY [facility] Last Admin: 11/30/17 08:23 Dose: 325 mg Atorvastatin Calcium (Lipitor) 10 mg PO HS [facility] Last Admin: 11/30/17 20:24 Dose: 10 mg Bismuth Subsalicylate (Pepto Bismol) 2 tab PO Q1H PRN PRN Reason: Diarrhea/Loose Stools Carvedilol (Coreg) 3.125 mg PO BID-[facility] Last Admin: 12/01/17 09:37 Dose: 3.125 mg Citalopram Hydrobromide (Celexa) 20 mg PO DAILY [facility] Last Admin: 11/30/17 08:23 Dose: 20 mg Enoxaparin Sodium (Lovenox) 40 mg SC 0900 [facility] Last Admin: 12/01/17 09:36 Dose: 40 mg Famotidine (Pepcid) 20 mg SLOW IVP Q12HR [facility] Last Admin: 12/01/17 09:37 Dose: 20 mg Levofloxacin 500 mg/ Device 100 mls @ 100 mls/hr IVPB Q2D@1800 [facility] Last Admin: 11/30/17 18:12 Dose: 100 mls Sodium Chloride (Normal Saline 0.9%) 1,000 mls @ 75 mls/hr IV .[id number] [facility] Last Admin: 12/01/17 12:31 Dose: 1,000 mls Ondansetron HCl (Zofran Odt) 4 mg PO Q6H PRN PRN Reason: Nausea/Vomiting Ondansetron HCl (Zofran) 4 mg IVP Q6H PRN PRN Reason: Nausea/Vomiting Last Admin: 12/01/17 05:46 Dose: 4 mg Oseltamivir Phosphate (Tamiflu) 75 mg PO BID [facility] Stop: 12/03/17 09:01 Last Admin: 12/01/17 09:37 Dose: 75 mg
[2017-12-01] MEDS: Aspirin 325 mg Enteric Coated Tablet PO SCH (17:52)
[2017-12-01] MEDS: Citalopram 20 MG TAB PO SCH (17:52)
--- NOTE | 2017-12-01 20:18 | PRG ---
DATE OF SERVICE: 12/01/2017 SUBJECTIVE: Patient was seen and examined at bedside and overnight events noted. Patient denies any shortness of breath or chest pain or palpitation. No history of nausea or vomitin g or diarrhea or fever or chills or cramps. OBJECTIVE: GENERAL: This is a well-built female, in no apparent distress. VITAL SIGNS: Temperature 98.0, pulse 70, respiratory rate 18, blood pressure 148/68. HEENT: Atraumatic, normocephalic, Oral mucosa is moist NECK: Supple CARDIOVASCULAR: S1, S2 heard, Rate and rhythm regular RESPIRATORY: Clear to auscultation GASTROINTESTINAL: Abdomen is soft MUSCULOSKELETAL : No tenderness, No edema DERMATOLOGIC : No skin rash NEUROLOGIC: Alert and awake and oriented X3, No focal neurologic deficits. Moving all the extremities . PSYCHIATRIC: Mood and affect normal. LABORATORY DATA: Potassium is 4.7, BUN 23, creatinine 0.7. ASSESSMENT AND PLAN: 1. Acute kidney injury. Renal function is much better. 2. Rhabdomyolysis, better. 3. Obesity. 4. Hypertension. 5. Anemia. Overall, renal function seems to be better. I will sign off. Please call back with any questions.
[2017-12-01] MEDS: Atorvastatin Calcium 10 MG TAB PO SCH (20:21)
[2017-12-02] MEDS: Sodium Chloride 0.9% 1,000 ML IV SCH ×2 (03:30→16:34)
[2017-12-02] MEDS: Ondansetron HCl/PF 4 MG/2 ML Vial IVP PRN ×2 (08:57→20:20)
[2017-12-02] MEDS: Enoxaparin Sodium 40 MG/0.4 ML SYRINGE SC SCH (08:58)
[2017-12-02] MEDS: Famotidine/PF 20 mg/2ml Vial SLOW IVP SCH ×2 (08:58→20:17)
[2017-12-02] MEDS: Metoclopramide HCl 10 MG/2 ML VIAL IVP SCH ×2 (12:16→16:34)
--- NOTE | 2017-12-02 12:38 | PDOC.PN ---
- Subjective Encounter Start Date: 12/02/17 Encounter Start Time: 09:00 Patient is seen today, she continuos to have nausea, she has No gallbladder. Unable to keep anything down. - Objective Resuscitation Status: Resuscitation Status FULL:Full Resuscitation MAR Reviewed: Yes Vital Signs & Weight: Vital Signs (12 hours) Temp Pulse Resp BP Pulse Ox 12/02/17 08:00 98.1 F 60 22 H 95 12/02/17 07:58 98.1 F 60 22 H 160/72 H 95 12/02/17 03:32 98.0 F 73 18 179/80 H 95 Weight Admit Weight 205 lb Weight 205 lb 4.8 oz I&O: 12/01/17 12/02/17 12/03/17 06:59 06:59 06:59 Intake Total 1230 2019 Output Total 4 Balance 1226 2019 Result Diagrams: 12/01/17 03:47 12/01/17 03:47 Radiology Reviewed by me: Yes Phys Exam - Physical Examination HEENT: PERRLA, moist MMs Neck: no nodes, no JVD Respiratory: no wheezing, no rales Cardiovascular: RRR, no significant murmur Gastrointestinal: soft, non-tender Musculoskeletal: no edema, pulses present Neurological: non-focal, normal sensation Dx/Plan (1) Acute renal failure due to rhabdomyolysis Code(s): N17.9 - ACUTE KIDNEY FAILURE, UNSPECIFIED; D21.9 - BENIGN NEOPLASM OF CONNECTIVE AND OTHER SOFT TISSUE, UNSP Status: Resolved (2) Influenza A Code(s): J10.1 - FLU DUE TO OTH IDENT INFLUENZA VIRUS W OTH RESP MANIFEST Status: Acute (3) Intractable nausea and vomiting Code(s): R11.2 - NAUSEA WITH VOMITING, UNSPECIFIED Status: Acute (4) NSTEMI (non-ST elevated myocardial infarction) Code(s): I21.4 - NON-ST ELEVATION (NSTEMI) MYOCARDIAL INFARCTION Status: Acute - Plan cont current plan of care, continue antibiotics, PT/OT, incentive spirometry, out of bed/ambulate, DVT proph w/lovenox * . Plan: persistant nausea and vomting, will do Scheudled Reglan IV q 6hrs , if persitant will Consult GI for EGD. pt is very weak and her Hydration is improving with IV fluids, will reduce fluids to 75ml/hr, repeat CPK is trending down and Troponin levels normal. Renal functions back to Normal. Cotninue on Tamiflu for 5 days Continue on Prophylaxis IV antibiotics Renally dosed. Pt has Echo normal EF, Troponins trending down, No chest pain. pt is on Coreg, Statin, Aspirin. Cardiology Ok with plan. Pt would benefit from Rehab, she is very weak. DVT prophylaxis Lovenox 40mg Sc daily. - Discharge Day Encounter end time: 09:35 Review of Systems - Review of Systems Constitutional: weakness ENT: negative: Ear Pain, Ear Discharge, Nose Pain, Nose Discharge, Nose Congestion, Mouth Pain, Mouth Swelling, Throat Pain, Throat Swelling, Other Respiratory: negative: Cough, Dry, Shortness of Breath, Hemoptysis, SOB with Excertion, Pleuritic Pain, Sputum, Wheezing Cardiovascular: negative: chest pain, palpitations, orthopnea, paroxysmal nocturnal dyspnea, edema, light headedness, other Gastrointestinal: Nausea, Vomiting Genitourinary: negative: Dysuria, Frequency, Incontinence, Hematuria, Retention , Other Musculoskeletal: negative: Neck Pain, Shoulder Pain, Arm Pain, Back Pain, Hand Pain, Leg Pain, Foot Pain, Other Skin: negative: Rash, Lesions, Naveen, Bruising, Other Neurological: Weakness - Medications/Allergies Allergies/Adverse Reactions: Allergies Allergy/AdvReac Type Severity Reaction Status Date / Time Goat Cheese Allergy Intermediate Fever, rash Uncoded 11/28/17 15:28 Medications: Current Medications Hydrocodone Bitart/Acetaminophen ([place] 5/325) 1 tab PO Q4H PRN PRN Reason: Moderate Pain (4-6) Last Admin: 12/01/17 17:51 Dose: 1 tab Alprazolam (Xanax) 0.25 mg PO Q4H PRN PRN Reason: Anxiety Last Admin: 11/29/17 20:42 Dose: 0.25 mg Amlodipine Besylate (Norvasc) 5 mg PO BID [facility] Last Admin: 12/01/17 20:21 Dose: 5 mg Aspirin (Ecotrin) 325 mg PO DAILY [facility] Last Admin: 12/01/17 17:52 Dose: Not Given Atorvastatin Calcium (Lipitor) 10 mg PO HS [facility] Last Admin: 12/01/17 20:21 Dose: 10 mg Bismuth Subsalicylate (Pepto Bismol) 2 tab PO Q1H PRN PRN Reason: Diarrhea/Loose Stools Carvedilol (Coreg) 3.125 mg PO BID-[facility] Last Admin: 12/01/17 18:02 Dose: Not Given Citalopram Hydrobromide (Celexa) 20 mg PO DAILY [facility] Last Admin: 12/01/17 17:52 Dose: Not Given Enoxaparin Sodium (Lovenox) 40 mg SC 0900 [facility] Last Admin: 12/02/17 08:58 Dose: 40 mg Famotidine (Pepcid) 20 mg SLOW IVP Q12HR [facility] Last Admin: 12/02/17 08:58 Dose: 20 mg Levofloxacin 500 mg/ Device 100 mls @ 100 mls/hr IVPB Q2D@1800 [facility] Last Admin: 11/30/17 18:12 Dose: 100 mls Sodium Chloride (Normal Saline 0.9%) 1,000 mls @ 75 mls/hr IV .[id number] [facility] Last Admin: 12/02/17 03:30 Dose: 1,000 mls Metoclopramide HCl (Reglan) 5 mg IVP AC [facility] Last Admin: 12/02/17 12:16 Dose: 5 mg Ondansetron HCl (Zofran Odt) 4 mg PO Q6H PRN PRN Reason: Nausea/Vomiting Ondansetron HCl (Zofran) 4 mg IVP Q6H PRN PRN Reason: Nausea/Vomiting Last Admin: 12/02/17 08:57 Dose: 4 mg Oseltamivir Phosphate (Tamiflu) 75 mg PO BID [facility] Stop: 12/03/17 09:01 Last Admin: 12/01/17 20:21 Dose: 75 mg
[2017-12-02] MEDS: Carvedilol 3.125 MG TAB PO SCH ×2 (14:38→17:29)
[2017-12-02] MEDS: Amlodipine 5 MG TAB PO SCH ×2 (14:38→20:17)
[2017-12-02] MEDS: Aspirin 325 mg Enteric Coated Tablet PO SCH (14:38)
[2017-12-02] MEDS: Citalopram 20 MG TAB PO SCH (14:38)
[2017-12-02] MEDS: Oseltamivir 75 MG CAP PO SCH ×4 (14:38→20:23)
[2017-12-02] MEDS: Atorvastatin Calcium 10 MG TAB PO SCH (20:17)
[2017-12-03] MEDS: Sodium Chloride 0.9% 1,000 ML IV SCH (04:31)
[2017-12-03] MEDS: Ondansetron HCl/PF 4 MG/2 ML Vial IVP PRN (04:38)
[2017-12-03] MEDS ORDERED: hydrALAZINE 20 MG/ML VIAL SLOW IVP PRN ×2 (05:09→09:30)
[2017-12-03] MEDS: Promethazine HCl 25 MG/ML VIAL SLOW IVP PRN ×3 (05:56→20:20)
[2017-12-03] MEDS: Metoclopramide HCl 10 MG/2 ML VIAL IVP SCH ×3 (08:19→17:21)
[2017-12-03] MEDS: Famotidine/PF 20 mg/2ml Vial SLOW IVP SCH ×2 (08:19→20:40)
[2017-12-03] MEDS: Enoxaparin Sodium 40 MG/0.4 ML SYRINGE SC SCH (08:19)
[2017-12-03] MEDS ORDERED: hydrALAZINE 20 MG/ML VIAL SLOW IVP SCH (08:50)
--- NOTE | 2017-12-03 11:06 | CON ---
DATE OF CONSULTATION: 12/03/2017 HISTORY OF PRESENT ILLNESS: Patient is an 87-year-old female who was hospitalized on 2016 for dehydration, rhabdomyolysis, and influenza. She had diarrhea, nausea, vomiting at that time . She had her gallbladder removed one month ago at [facility] and was uncomplicated acco rding to the patient. She denies any abdominal pain. She reports she is holding down lunch and she had apparently it looks like a regular tray and ate a 100% of that tray. She has had no bowel moveme nts today or yesterday. PAST MEDICAL HISTORY: Includes hypertension. PAST SURGICAL HISTORY: Includes cholecystectomy, hysterectomy. SOCIAL HISTORY: She does not smoke or drink. HOME MEDICATIONS: Include Tramadol and lisinopril. ALLERGIES: To GOAT CHEESE. FAMILY HISTORY: Negative for GI or liver disease. REVIEW OF SYSTEMS: Constitutional: No fever or chills. No weight loss. Eyes: No blurred vision, double vision. ENT: No sore throat or earaches. Positive for vertigo. Cardiovascular: No chest p ain or palpitation. Pulmonary: No shortness of breath, cough or wheezing. Gastrointestinal: See claude orr. Genitourinary: No hematuria or dysuria. Musculoskeletal: No joint pain or muscle weakness. Skin: No rashes. Neurologic: No numbness or seizure activity. PHYSICAL EXAMINATION: GENERAL: Shows an elderly female, in no acute distress. VITAL SIGNS: Temperature 98.1, pulse 74, respiratory rate 18, blood pressure 187/81. HEENT: Unremarkable. NECK: Supple. CHEST: Clear. CARDIOVASCULAR: Regular rate and rhythm. ABDOMEN: Soft, nontender, without organomegaly or masses. Bowel sounds are present. RECTAL: Deferred. EXTREMITIES: Normal. LABORATORY DATA: Shows a CBC from 12/01/2017 with a white blood cell count 6.8, hemoglobin 12.6, hem atocrit 37.3 with platelet count 219. Chemistries show a chloride of 113, BUN 23, creatinine 0.77, c alcium 7.7. Initial LFTs showed total bilirubin 0.5, AST 236, ALT of 90, CK of 11,000. Troponin is 0.218. Stool for C. diff is negative. Influenza test was positive for influenza A antigen. ASSESSMENT: 1. Influenza A. 2. Nausea, vomiting - patient looks like she has eaten 100% of her lunch tray. 3. Vertigo - this could be contributing to the patient's nausea and vomiting. 4. Status post cholecystectomy, 1 month ago. 5. Abnormal transaminases - probably secondary to rhabdomyolysis. RECOMMENDATIONS: 1. Repeat LFTs. 2. Begin PPI. 3. Continue metoclopramide. 4. EGD if the patient continues to have symptoms. 5. Discontinue hydrocodone.
[2017-12-03] MEDS: Aspirin 325 mg Enteric Coated Tablet PO SCH (11:15)
[2017-12-03] MEDS: Citalopram 20 MG TAB PO SCH (11:15)
[2017-12-03] MEDS: Amlodipine 5 MG TAB PO SCH ×2 (11:15→20:17)
[2017-12-03] MEDS: Carvedilol 3.125 MG TAB PO SCH ×2 (11:15→17:21)
[2017-12-03] MEDS ORDERED: Promethazine HCl 12.5 MG in Sodium Chloride 0.9% 50 ML IVPB PRN (11:31)
[2017-12-03] MEDS ORDERED: Promethazine HCl 25 MG/ML VIAL SLOW IVP PRN (14:48)
[2017-12-03] MEDS: Oseltamivir 75 MG CAP PO SCH (14:54)
--- NOTE | 2017-12-03 14:56 | PDOC.PN ---
- Subjective Encounter Start Date: 12/03/17 Encounter Start Time: 09:00 Patient is seen today, alert and oriented. persistant nausea and Vomniting, failed Reglan/ Zofran and phenergan. - Objective Resuscitation Status: Resuscitation Status FULL:Full Resuscitation MAR Reviewed: Yes Vital Signs & Weight: Vital Signs (12 hours) Temp Pulse Resp BP BP Pulse Ox 12/03/17 12:13 98.4 F 82 20 146/52 H 95 12/03/17 11:15 74 187/81 H 12/03/17 09:42 74 187/81 H 12/03/17 08:00 98.1 F 74 18 187/81 H 94 L 12/03/17 05:56 75 191/84 H 12/03/17 04:00 98.2 F 75 18 181/96 H 93 L Weight Admit Weight 205 lb Weight 205 lb 4.8 oz I&O: 12/02/17 12/03/17 12/04/17 06:59 06:59 06:59 Intake Total 2019 1300 120 Balance 2019 1300 120 Result Diagrams: 12/01/17 03:47 12/01/17 03:47 Radiology Reviewed by me: Yes EKG Reviewed by me: Yes Phys Exam - Physical Examination HEENT: PERRLA, moist MMs Neck: no nodes, no JVD Respiratory: no wheezing, no rales Cardiovascular: RRR, no significant murmur Gastrointestinal: soft, non-tender Musculoskeletal: no edema, pulses present Neurological: non-focal, normal sensation Lymphatic: no nodes Psychiatric: normal affect, A&O x 3 Dx/Plan (1) Acute renal failure due to rhabdomyolysis Code(s): N17.9 - ACUTE KIDNEY FAILURE, UNSPECIFIED; D21.9 - BENIGN NEOPLASM OF CONNECTIVE AND OTHER SOFT TISSUE, UNSP Status: Resolved (2) Influenza A Code(s): J10.1 - FLU DUE TO OTH IDENT INFLUENZA VIRUS W OTH RESP MANIFEST Status: Acute (3) Intractable nausea and vomiting Code(s): R11.2 - NAUSEA WITH VOMITING, UNSPECIFIED Status: Acute Qualifiers: Vomiting type: unspecified Qualified Code(s): R11.2 - Nausea with vomiting , unspecified (4) NSTEMI (non-ST elevated myocardial infarction) Code(s): I21.4 - NON-ST ELEVATION (NSTEMI) MYOCARDIAL INFARCTION Status: Resolved - Plan cont current plan of care, PT/OT, out of bed/ambulate, DVT proph w/lovenox * . Plan: persistant nausea and vomting, Reglan IV q 6hrs , it is persitant will Consult GI for EGD. pt is very weak and her Hydration is improving with IV fluids, will reduce fluids to 75ml/hr, repeat CPK is trending down and Troponin levels normal. Renal functions back to Normal. Cotninue on Tamiflu for 5 days Continue on Prophylaxis IV antibiotics Renally dosed. Pt has Echo normal EF, Troponins trending down, No chest pain. pt is on Coreg, Statin, Aspirin. Cardiology Ok with plan. Pt would benefit from Rehab, she is very weak. DVT prophylaxis Lovenox 40mg Sc daily. - Discharge Day Encounter end time: 09:30 Review of Systems - Review of Systems Constitutional: weakness Eyes: Pain. negative: Vision Change, Conjunctivae Inflammation, Eyelid Inflammation, Redness, Other ENT: negative: Ear Pain, Ear Discharge, Nose Pain, Nose Discharge, Nose Congestion, Mouth Pain, Mouth Swelling, Throat Pain, Throat Swelling, Other Respiratory: negative: Cough, Dry, Shortness of Breath, Hemoptysis, SOB with Excertion, Pleuritic Pain, Sputum, Wheezing Cardiovascular: negative: chest pain, palpitations, orthopnea, paroxysmal nocturnal dyspnea, edema, light headedness, other Gastrointestinal: Nausea, Vomiting Genitourinary: negative: Dysuria, Frequency, Incontinence, Hematuria, Retention , Other Musculoskeletal: negative: Neck Pain, Shoulder Pain, Arm Pain, Back Pain, Hand Pain, Leg Pain, Foot Pain, Other Skin: negative: Rash, Lesions, Naveen, Bruising, Other Neurological: negative: Weakness, Numbness, Incoordination, Change in Speech, Confusion, Seizures, Other - Medications/Allergies Allergies/Adverse Reactions: Allergies Allergy/AdvReac Type Severity Reaction Status Date / Time Goat Cheese Allergy Intermediate Fever, rash Uncoded 11/28/17 15:28 Medications: Current Medications Alprazolam (Xanax) 0.25 mg PO Q4H PRN PRN Reason: Anxiety Last Admin: 11/29/17 20:42 Dose: 0.25 mg Amlodipine Besylate (Norvasc) 5 mg PO BID DANIE Last Admin: 12/03/17 11:15 Dose: Not Given Aspirin (Ecotrin) 325 mg PO DAILY [facility] Last Admin: 12/03/17 11:15 Dose: Not Given Atorvastatin Calcium (Lipitor) 10 mg PO HS [facility] Last Admin: 12/02/17 20:17 Dose: Not Given Bismuth Subsalicylate (Pepto Bismol) 2 tab PO Q1H PRN PRN Reason: Diarrhea/Loose Stools Carvedilol (Coreg) 3.125 mg PO BID-[facility] Last Admin: 12/03/17 11:15 Dose: Not Given Citalopram Hydrobromide (Celexa) 20 mg PO DAILY [facility] Last Admin: 12/03/17 11:15 Dose: Not Given Enoxaparin Sodium (Lovenox) 40 mg SC 0900 [facility] Last Admin: 12/03/17 08:19 Dose: 40 mg Famotidine (Pepcid) 20 mg SLOW IVP Q12HR [facility] Last Admin: 12/03/17 08:19 Dose: 20 mg Hydralazine HCl (Apresoline) 20 mg SLOW IVP Q3H PRN PRN Reason: FOR SBP > 180 Levofloxacin 500 mg/ Device 100 mls @ 100 mls/hr IVPB Q2D@1800 [facility] Last Admin: 12/02/17 16:54 Dose: 100 mls Metoclopramide HCl (Reglan) 5 mg IVP AC [facility] Last Admin: 12/03/17 14:55 Dose: Not Given Ondansetron HCl (Zofran Odt) 4 mg PO Q6H PRN PRN Reason: Nausea/Vomiting Ondansetron HCl (Zofran) 4 mg IVP Q6H PRN PRN Reason: Nausea/Vomiting Last Admin: 12/03/17 04:38 Dose: 4 mg Promethazine HCl (Phenergan) 12.5 mg SLOW IVP Q6H PRN PRN Reason: Nausea/Vomiting Last Admin: 12/03/17 05:56 Dose: 12.5 mg
[2017-12-03] MEDS: Atorvastatin Calcium 10 MG TAB PO SCH (20:18)
[2017-12-03] MEDS: Famotidine 40 MG/4 ML VIAL SLOW IVP SCH (21:11)
[2017-12-04] MEDS: Carvedilol 3.125 MG TAB PO SCH ×2 (06:08→17:09)
[2017-12-04 06:16] LABS: ALT (SGPT) 46 U/L (8-55); AST (SGOT) 38 U/L (5-34); Albumin 2.5 g/dL (3.4-4.8); Alkaline Phosphatase 98 U/L (40-150); Bilirubin, Direct 0.4 mg/dL (0.1-0.3); Bilirubin, Total 0.8 mg/dL (0.2-1.2); Protein, Total 5.3 g/dL (6.0-8.3)
[2017-12-04] MEDS ORDERED: Propofol 200 MG/20 ML VIAL ONE (06:44)
[2017-12-04] MEDS ORDERED: Lidocaine 1% PF 5 ML VIAL ONE (06:44)
[2017-12-04] MEDS: Citalopram 20 MG TAB PO SCH (08:30)
[2017-12-04] MEDS: Aspirin 325 mg Enteric Coated Tablet PO SCH (08:30)
[2017-12-04] MEDS: Metoclopramide HCl 10 MG/2 ML VIAL IVP SCH ×3 (08:30→17:09)
[2017-12-04] MEDS: Enoxaparin Sodium 40 MG/0.4 ML SYRINGE SC SCH (08:30)
[2017-12-04] MEDS: Amlodipine 5 MG TAB PO SCH ×2 (08:34→20:20)
[2017-12-04] MEDS: Famotidine 40 MG/4 ML VIAL SLOW IVP SCH (08:51)
--- NOTE | 2017-12-04 13:50 | OP ---
DATE OF PROCEDURE: 12/04/2017 SURGEON: Dr. Matt Can PREOPERATIVE DIAGNOSIS: Persistent nausea and vomiting. PROCEDURE: After informed consent was obtained, the patient placed in the left lateral decubitus pos ition. Anesthesia was administered per the Anesthesia Department. Forward-viewing endoscope was ins erted into the esophagus under direct visualization with ease and passed to the second portion of the duodenum with ease. Second portion of the duodenum and duodenal bulb were normal. The pylorus, ant rum, body, fundus, and cardia were normal except for some mild nonerosive gastritis. Biopsies were t aken from the antrum and body. Retroflexion in the stomach showed a medium hiatal hernia. The esoph carly was normal throughout. ASSESSMENT: 1. Mild antral gastritis - status post biopsy. 2. Medium hiatal hernia. 3. Otherwise normal esophagogastroduodenoscopy. RECOMMENDATIONS: 1. Continue Reglan. 2. Switch from H2 sanjuana to PPI. 3. Feeding trial.
--- NOTE | 2017-12-04 14:06 | PDOC.PN ---
- Subjective Encounter Start Date: 12/04/17 Encounter Start Time: 09:05 -: old records requested/rev Pt seen and examined, chart reviewed in its entirety. This is my first visit with this patient. Pt with more nausea yesterday, NPO, EGD today with Dr Can. no f/C, no n/V/D/C , less nausea when NPO. EGD with antral gastritis, changed to PPI from H2B. no F/C, no D/C, no CP or SOB, no cough or sputum 10 point ROS performed and neg for all systems except as above - Objective Resuscitation Status: Resuscitation Status FULL:Full Resuscitation MAR Reviewed: Yes Vital Signs & Weight: Vital Signs (12 hours) Temp Pulse Resp BP BP Pulse Ox 12/04/17 13:18 98.4 F 80 20 191/79 H 96 12/04/17 08:34 79 12/04/17 08:00 98.3 F 79 18 151/85 H 95 12/04/17 04:00 98.5 F 79 20 176/79 H 92 L Weight Admit Weight 205 lb Weight 205 lb 4.8 oz I&O: 12/03/17 12/04/17 12/05/17 06:59 06:59 06:59 Intake Total 1300 1390 Balance 1300 1390 Result Diagrams: 12/01/17 03:47 12/01/17 03:47 Radiology Reviewed by me: Yes EKG Reviewed by me: Yes Phys Exam - Physical Examination Constitutional: NAD HEENT: PERRLA, moist MMs, sclera anicteric, oral pharynx no lesions Neck: no nodes, no JVD, supple, full ROM Respiratory: no wheezing, no rales, no rhonchi, clear to auscultation bilateral Cardiovascular: RRR, no significant murmur, no rub Gastrointestinal: soft, no distention, positive bowel sounds slight epigastric tenderness Musculoskeletal: pulses present, edema present Neurological: non-focal, normal sensation, moves all 4 limbs Lymphatic: no nodes Psychiatric: normal affect, A&O x 3 Skin: no rash, normal turgor, cap refill <2 seconds Dx/Plan (1) 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 Status: Chronic (2) Influenza A Code(s): J10.1 - FLU DUE TO OTH IDENT INFLUENZA VIRUS W OTH RESP MANIFEST Status: Chronic Comment: tamiflu, clincially improved (3) Intractable nausea and vomiting Code(s): R11.2 - NAUSEA WITH VOMITING, UNSPECIFIED Status: Acute Qualifiers: Vomiting type: unspecified Qualified Code(s): R11.2 - Nausea with vomiting , unspecified (4) Acute renal failure due to rhabdomyolysis Code(s): N17.9 - ACUTE KIDNEY FAILURE, UNSPECIFIED; D21.9 - BENIGN NEOPLASM OF CONNECTIVE AND OTHER SOFT TISSUE, UNSP Status: Resolved (5) NSTEMI (non-ST elevated myocardial infarction) Code(s): I21.4 - NON-ST ELEVATION (NSTEMI) MYOCARDIAL INFARCTION Status: Resolved (6) Pneumonia, organism unspecified Code(s): J18.9 - PNEUMONIA, UNSPECIFIED ORGANISM Status: Acute - Plan * . PPI, feeding trial, stop H2 sajnuana. Home soon
[2017-12-04] MEDS: Atorvastatin Calcium 10 MG TAB PO SCH (20:20)
[2017-12-04] MEDS ORDERED: Acetaminophen 325 MG TAB PO SCH (22:00)
[2017-12-05 05:52] LABS: #Eosinphils 0.1 thou/uL (0.0-0.7); #Monocytes 0.8 thou/uL (0.11-0.59); #Neutrophils 5.5 thou/uL (1.40-6.50); %Basophils 0.3 % (0.0-1.0); %Eosinophils 1.1 % (0.0-10.0); %Lymphocytes 23.4 % (21.0-51.0); %Monocytes 9.2 % (0.0-10.0); %Neutrophils 66.1 % (42.0-75.0); Hemoglobin 13.1 g/dL (12.0-16.0); Mean Corpuscular Hemoglobin 32.2 pg (27.0-31.0); Mean Corpuscular Volume 94.7 fl (81.0-99.0); Mean Platelet Volume 7.1 fL (7.4-10.4); Platelet Count 329 thou/uL (130-400); Red Blood Cell (RBC) Count 4.08 mill/uL (4.20-5.40); White Blood Cell (WBC) Count 8.4 thou/uL (4.8-10.8)
[2017-12-05 06:13] LABS: Anion Gap 11 mmol/L (10-20); BUN (Urea Nitrogen) 14 mg/dL (9.8-20.1); Calc. Creatinine Clearance 94 mL/min (70-130); Calcium 7.6 mg/dL (7.8-10.44); Carbon Dioxide 24 mmol/L (23-31); Chloride 107 mmol/L (98-107); Estimated GFR-MDRD 90; Glucose 114 mg/dL (83-110); Magnesium 1.1 mg/dL (1.6-2.6); Sodium 139 mmol/L (136-145)
[2017-12-05 06:18] LABS: Potassium 2.7 mmol/L (3.5-5.1)
[2017-12-05] MEDS: Enoxaparin Sodium 40 MG/0.4 ML SYRINGE SC SCH (07:42)
[2017-12-05] MEDS: Metoclopramide HCl 10 MG/2 ML VIAL IVP SCH ×2 (07:42→11:03)
[2017-12-05] MEDS: Citalopram 20 MG TAB PO SCH (07:42)
[2017-12-05] MEDS: Amlodipine 5 MG TAB PO SCH ×2 (07:43→21:06)
[2017-12-05] MEDS: Carvedilol 3.125 MG TAB PO SCH ×2 (07:43→17:03)
[2017-12-05] MEDS: Aspirin 325 mg Enteric Coated Tablet PO SCH (07:43)
[2017-12-05] MEDS: Potassium Chloride 20 MEQ TAB PO SCH ×4 (10:00→21:06)
[2017-12-05] MEDS: Ondansetron HCl/PF 4 MG/2 ML Vial IVP PRN (10:02)
[2017-12-05] MEDS ORDERED: Magnesium Sulfate 4 GM in Sodium Chloride 0.9% 250 ML 250 ML IVPB SCH (11:00)
--- NOTE | 2017-12-05 13:39 | PRG ---
DATE OF SERVICE: 12/05/2017 SUBJECTIVE: The patient is eating well. She has had good bowel movements. She complains of general ized weakness. She is having no abdominal pain. OBJECTIVE: VITAL SIGNS: Temperature is 98.1, pulse 82, respiratory rate 20 and blood pressure 174/90. CHEST: Clear. CARDIOVASCULAR: Regular rate and rhythm. ABDOMEN: Soft and nontender, without guarding or rebound. LABORATORY DATA: Shows a normal CBC. Chemistries are significant for a potassium of 2.7. ASSESSMENT: 1. Influenza A. 2. Nausea and vomiting - resolved. 3. Vertigo. 4. Hypokalemia. RECOMMENDATIONS: 1. Decrease or discontinue metoclopramide. 2. Continue proton-pump inhibitor for a little bit longer. 3. Stable from GI standpoint for discharge. 4. We will sign off.
[2017-12-05] MEDS ORDERED: Meclizine HCl 12.5 MG TAB PO PRN (14:34)
--- NOTE | 2017-12-05 14:36 | PDOC.PN ---
- Subjective Encounter Start Date: 12/05/17 Encounter Start Time: 12:00 Pt lying in bed. ate breakfast without difficulty. Refused Pt earlier, 'too sick' No N/V, no CP or sOB, just feels weak and has vertigo when looking to the left K+ and Mag low this AM, replacing. feels better than admit GI notes reviewed, discussed with Dr Can 10 point ROS performed and neg for all systems except as per HPI - Objective Resuscitation Status: Resuscitation Status FULL:Full Resuscitation MAR Reviewed: Yes Vital Signs & Weight: Vital Signs (12 hours) Temp Pulse Resp BP BP Pulse Ox 12/05/17 08:23 98.1 F 82 20 174/90 H 94 L 12/05/17 08:00 98.1 F 79 18 96 12/05/17 07:43 79 12/05/17 04:00 98.5 F 79 20 175/72 H 94 L Weight Admit Weight 205 lb Weight 205 lb 4.8 oz I&O: 12/04/17 12/05/17 12/06/17 06:59 06:59 06:59 Intake Total 1390 490 480 Balance 1390 490 480 Result Diagrams: 12/05/17 05:09 12/05/17 05:09 Additional Labs: Accuchecks 12/05/17 12/05/17 12/04/17 11:34 03:37 19:44 POC Glucose 133 H 104 124 H Radiology Reviewed by me: Yes EKG Reviewed by me: Yes Phys Exam - Physical Examination Constitutional: NAD HEENT: PERRLA, moist MMs, sclera anicteric, oral pharynx no lesions Neck: no nodes, no JVD, supple, full ROM Respiratory: no wheezing, no rales, no rhonchi, clear to auscultation bilateral Cardiovascular: RRR, no significant murmur, no rub Gastrointestinal: soft, non-tender, no distention, positive bowel sounds Musculoskeletal: no edema, pulses present Neurological: non-focal, normal sensation, moves all 4 limbs Lymphatic: no nodes Psychiatric: normal affect, A&O x 3 Skin: no rash, normal turgor, cap refill <2 seconds Dx/Plan (1) 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 continue at discharge (2) Influenza A Code(s): J10.1 - FLU DUE TO OTH IDENT INFLUENZA VIRUS W OTH RESP MANIFEST Status: Chronic Comment: tamiflu, clincially improved (3) Intractable nausea and vomiting Code(s): R11.2 - NAUSEA WITH VOMITING, UNSPECIFIED Status: Resolved Qualifiers: Vomiting type: unspecified Qualified Code(s): R11.2 - Nausea with vomiting , unspecified (4) Acute renal failure due to rhabdomyolysis Code(s): N17.9 - ACUTE KIDNEY FAILURE, UNSPECIFIED; D21.9 - BENIGN NEOPLASM OF CONNECTIVE AND OTHER SOFT TISSUE, UNSP Status: Resolved - Plan cont current plan of care, PT/OT, out of bed/ambulate * . meclizine for vertigo, replace lytes, recheck in AM
[2017-12-05] MEDS ORDERED: Meclizine HCl 25 MG TAB PO PRN (14:37)
[2017-12-05 18:14] LABS: Anion Gap 11 mmol/L (10-20); BUN (Urea Nitrogen) 18 mg/dL (9.8-20.1); Calc. Creatinine Clearance 86 mL/min (70-130); Calcium 7.9 mg/dL (7.8-10.44); Carbon Dioxide 24 mmol/L (23-31); Chloride 108 mmol/L (98-107); Estimated GFR-MDRD 81; Glucose 150 mg/dL (83-110); Magnesium 1.8 mg/dL (1.6-2.6); Potassium 3.1 mmol/L (3.5-5.1); Sodium 140 mmol/L (136-145)
[2017-12-05] MEDS ORDERED: Pantoprazole 40 MG VIAL IVP SCH (21:00)
[2017-12-05] MEDS: Atorvastatin Calcium 10 MG TAB PO SCH (21:07)
[2017-12-06 05:12] LABS: #Basophils 0.1 thou/uL (0.0-0.2); #Eosinphils 0.1 thou/uL (0.0-0.7); #Lymphocytes 2.4 thou/uL (1.20-3.40); #Neutrophils 6.8 thou/uL (1.40-6.50); %Basophils 0.5 % (0.0-1.0); %Eosinophils 0.7 % (0.0-10.0); %Lymphocytes 23.3 % (21.0-51.0); %Monocytes 9.4 % (0.0-10.0); %Neutrophils 66.1 % (42.0-75.0); Hemoglobin 12.6 g/dL (12.0-16.0); Mean Corpuscular HGB CONC 33.3 g/dL (32.0-36.0); Mean Corpuscular Hemoglobin 31.8 pg (27.0-31.0); Mean Corpuscular Volume 95.6 fl (81.0-99.0); Mean Platelet Volume 6.6 fL (7.4-10.4); Platelet Count 372 thou/uL (130-400); Red Blood Cell (RBC) Count 3.97 mill/uL (4.20-5.40); White Blood Cell (WBC) Count 10.2 thou/uL (4.8-10.8)
[2017-12-06 05:35] LABS: Anion Gap 10 mmol/L (10-20); BUN (Urea Nitrogen) 18 mg/dL (9.8-20.1); Calc. Creatinine Clearance 96 mL/min (70-130); Calcium 8.1 mg/dL (7.8-10.44); Carbon Dioxide 26 mmol/L (23-31); Chloride 109 mmol/L (98-107); Estimated GFR-MDRD Greater than 90; Glucose 114 mg/dL (83-110); Magnesium 1.7 mg/dL (1.6-2.6); Potassium 3.8 mmol/L (3.5-5.1); Sodium 141 mmol/L (136-145)
[2017-12-06] MEDS: Aspirin 325 mg Enteric Coated Tablet PO SCH (07:53)
[2017-12-06] MEDS: Carvedilol 3.125 MG TAB PO SCH ×2 (07:53→17:01)
[2017-12-06] MEDS: Amlodipine 5 MG TAB PO SCH (07:54)
[2017-12-06] MEDS: Citalopram 20 MG TAB PO SCH (07:54)
[2017-12-06] MEDS: Enoxaparin Sodium 40 MG/0.4 ML SYRINGE SC SCH (07:54)
[2017-12-06 09:40] VITALS: BP 138/75; TEMP 98.9
--- NOTE | 2017-12-17 15:25 | EKG ---
Test Reason : Blood Pressure : / mmHG Vent. Rate : 084 BPM Atrial Rate : 084 BPM P-R Int : 152 ms QRS Dur : 082 ms QT Int : 406 ms P-R-T Axes : 062 -30 064 degrees QTc Int : 479 ms Normal sinus rhythm Left axis deviation Minimal voltage criteria for LVH, may be normal variant Nonspecific T wave abnormality Prolonged QT Abnormal ECG Confirmed by MIGNON TORRES ([id number]), state editor MARI BENZ ([id number] on 12/17/2017 3:24:48 PM Referred By: Confirmed By:MIGNON TORRES
== END 2017-12-06 19:45 | DRG 682 ==
LOC: ERS 22:36 → ERHOLD 11-28 00:25 → T4-B 11-28 16:03
PROVIDERS: ADMIT Internal Medicine Infectious Disease; ATTEND Internal Medicine Infectious Disease
PROC: 0DB68ZX Excision of Stomach, Via Natural or Artificial Opening Endoscopic, Diagnostic (ICD-10-PCS; principal; 2017-12-04)
DX: N17.9 Acute kidney failure, unspecified (principal); I21.A1 Myocardial infarction type 2; E88.09 Other disorders of plasma-protein metabolism, not elsewhere classified; M62.82 Rhabdomyolysis; E86.0 Dehydration; N18.4 Chronic kidney disease, stage 4 (severe); I12.9 Hypertensive chronic kidney disease with stage 1 through stage 4 chronic kidney disease, or unspecified chronic kidney disease; J10.1 Influenza due to other identified influenza virus with other respiratory manifestations; D64.9 Anemia, unspecified; E87.6 Hypokalemia; E66.9 Obesity, unspecified; Z68.32 Body mass index [BMI] 32.0-32.9, adult; K29.70 Gastritis, unspecified, without bleeding; K44.9 Diaphragmatic hernia without obstruction or gangrene; M06.9 Rheumatoid arthritis, unspecified; F41.9 Anxiety disorder, unspecified; Z85.038 Personal history of other malignant neoplasm of large intestine; Z79.82 Long term (current) use of aspirin; Z79.899 Other long term (current) drug therapy; Z90.49 Acquired absence of other specified parts of digestive tract
CPT/HCPCS: 36415; 36416; 51701; 70450; 80048; 80053; 80076; 81003; 81015; 82550; 82553; 83735; 84484; 85025; 87324; 87449; 88305; 88312; 93005; 93306; 94760; 96361; 96365; 96366; 96375; A4217; A4353; G8978-GP-CK; G8979-GP-CI; G8987-GO-CJ; G8988-GO-CI; J0360; J1650; J1956; J2001; J2405; J2550; J2704; J2765; J3475; J7050; S0028